=== PATIENT | female | born 1990 | race Hispanic/Latino ===

== ENCOUNTER 2018-09-03 20:29 | Day surgery (SDC) | payer OTHER ==
[2018-09-03 21:19] LABS: Amnisure Test No Membranes Rupture (No Rupture)
[2018-09-03 21:20] LABS: Amnisure Internal Control QC ACCEPTABLE (ACCEPTABLE)
[2018-09-03 21:38] VITALS: BMI 28.7
--- NOTE | 2018-09-03 22:37 | PDOC.LDHP ---
Labor and Delivery H&P Chief complaint: loss of fluid HPI: Patient of [facility] 35 weeks 1 day Here for LOF X 1 at 1999, unsure if urine HPI: 28 yo SAB2 prior CS x 2 in [place], here for LOF. Has Repeat CS . Review of Systems: no VB, no continued LOF, good FM, no fever. Current gestational age (weeks): 35 (1 day) Dating criteria: last menstrual period Grav: 5 Para: 2 OB History Details: SAB 2; CS x 2 in [place] (vertical skin) Current complications: none Abnormal US findings: No Current medications: pre- vitamins Previous surgical history: low tranverse CS (2) Allergies/Adverse Reactions: Allergies Allergy/AdvReac Type Severity Reaction Status Date / Time No Known Allergies Allergy Verified 09/03/18 21:15 - Physical Exam Vital signs reviewed and normal: yes (111/75 81 afebrile) General: NAD Heart: RRR Lungs: CTAB Abdomen: gravid Extremeties: no edema FHT: category 1 [place] contractions every: none - Vaginal Exam cm dilated: 0 Effacement: 0% (0) Station: -1 - Assessment Possible LOF x 1 at 1999...prior CS x 2 - Plan Plan: observation in L&D (I performed SSE...no pooling, cough test neg, valsalva with no leakage; Amnisure negative. I discussed these findings with the patient and . May have been urine leakage....no LOF here)
== END 2018-09-03 23:10 | disposition home or self-care (01) ==
LOC: L&D/OP 20:29
PROVIDERS: ATTEND Family Medicine
DX: O99.89 Other specified diseases and conditions complicating pregnancy, childbirth and the puerperium (principal); N89.8 Other specified noninflammatory disorders of vagina; Z3A.35 35 weeks gestation of pregnancy; Z79.899 Other long term (current) drug therapy; Z98.891 History of uterine scar from previous surgery
CPT/HCPCS: 84112; 99284